=== PATIENT | female | born 1980 | race Caucasian/White ===

== ENCOUNTER 2018-10-11 06:12 | Inpatient (IN) | payer OTHER ==
--- NOTE | 2018-10-08 21:49 | PREOPHP ---
DATE OF ADMISSION: 10/11/2018 The patient is coming on 10/11 for a surgical procedure. HISTORY OF PRESENT ILLNESS: This is a 37-year-old female, 1, para 0, abortions 1. This brian ent was referred to me due to a large uterine fibroid that was giving her very heavy periods with marifer ts and anemia and pain unrelieved by NSAIDs and pain also for 3 days, heavy periods, regular periods, dyspareunia, dysmenorrhea for the last 3 or 4 years that has been worsening for the last 2 years. S he had a recent treatment for yeast infection. She has been bloated. She had pain in urination and she loses urine when she coughs or laugh due to the pressure of the uterus against the bladder. She wears a pad on a daily basis due to urinary accidents. She had a blood transfusion due to a hemoglob in of 5 last year and at this time she was examined and found that the uterus was 2 fingerbreadths be low her navel. The patient was advised for a myomectomy, possible UMESH as we never can say that we ar e not going to have accidents or excessive bleeding during the myomectomy and may need to have a hyst erectomy. She had agreed to go ahead with a myomectomy, possible UMESH. Her past history otherwise is negative for surgery. SHE HAS NO ALLERGIES. She is on iron. Family history for hypertension. The patient was treated with Lupron injections to try to decrease the size of the uterus and also decrea se the blood flow to the uterus by being in artificial menopause. REVIEW OF SYSTEMS: Negative for cardiovascular disease, negative for lung disease. She does not dri nk, only socially. She has a history of constipation, bloatedness, and she has no history of diabete s, any endocrine disease. No neurological or orthopedic disease. No hematological disease except fo r anemia due to her fibroids. MEDICATIONS: SHE IS NOT ALLERGIC TO ANY MEDICATIONS. SOCIAL HISTORY: She does not drink or smoke. FAMILY HISTORY: Hypertension. PHYSICAL EXAMINATION: VITAL SIGNS: Stable. She is 135 pounds, and she is 5'2". The blood pressure is 110/60, pulse is 80 , respirations 16. HEAD AND NECK: Normal. CHEST: Clear. HEART: Normal sinus rhythm. LUNGS: Clear. ABDOMEN: Soft, nontender, no masses. PELVIC: uterus that is about 14 weeks size right now after the Lupron treatment. The patient' s skin is better with less anemia from the Lupron treatment. The cervix is closed and uterus was irineo y large and adnexa are negative. EXTREMITIES: Normal with normal pulses and no edema. DIAGNOSES: 1. Large giant fibroid uterus. 2. Menometrorrhagia. 3. Pelvic pain, intractable. 4. Anemia. PLAN: She is undergoing multiple myomectomy, possible UMESH. She has been advised of the possible ris ks and possible complications of the procedure with her alternatives and options. Written informatio n was provided. She had no more questions and agreed to go ahead with the procedure with full unders tanding and no more questions. Dictated By: QI PETERSON/NTS Conf#: [id number] DID#: [id number]
[2018-10-11] VITALS (27 sets, daily range): BP systolic 95–143; BP diastolic 52–84; PULSE 54–81; RESP 14–24; Ht 157.5 cm; Wt 59.1 kg
[~2018-10-11] VITALS: Ht 157.5 cm; Wt 59.1 kg
[2018-10-11] MEDS ORDERED: PROPOFOL 100 ML ONE (07:08)
[2018-10-11] MEDS ORDERED: LIDOCAINE 100 MG SYRINGE ONE (07:08)
[2018-10-11] MEDS ORDERED: MIDAZOLAM 1 MG/ML 2 ML INJ ONE (07:08)
[2018-10-11] MEDS ORDERED: ROCURONIUM 50 MG INJ ONE (07:08)
[2018-10-11] MEDS ORDERED: ONDANSETRON 4 MG INJ ONE (07:08)
[2018-10-11] MEDS ORDERED: FENTAnyl 50 MCG/ML VIAL ONE (07:08)
[2018-10-11] MEDS ORDERED: DEXAMETHASONE 4 MG/ML 5 ML INJ ONE (07:08)
[2018-10-11] MEDS ORDERED: CEFAZOLIN 1 GM INJ ONE (07:08)
[2018-10-11] MEDS ORDERED: SUGAMMADEX SODIUM 200 MG/2 ML VIAL IV ONE (07:09)
--- NOTE | 2018-10-11 07:18 | PREAC ---
Date/Time of Note Date/Time of Note DATE: 10/11/18 TIME: 07:18 Anesthesia Eval and Record Evaluation Time Pre-Procedure Interview DATE: 10/11/18 TIME: 07:18 Age 37 Sex female NPO: 8 hrs Preoperative diagnosis large giant fibroid uterus Planned procedure MYOMECTOMY, POSSIBLE UMESH Past Medical History Past Medical History: None Surgery & Anesthesia Issues No known issue Meds Anticoagulation: No Beta Sybil within 24 hr: No Reason Beta Sybil not given: Pt. not on B-Sybil No Active Prescriptions or Reported Meds Meds reviewed: Yes Allergies Coded Allergies: No Known Allergy (Unverified , 10/11/18) Allergies Reviewed: Yes Labs/Studies Labs Reviewed: Reviewed by anesthesiologist Blood Bank Test 10/11/18 06:46 Blood Product Summary Counts test: Negative Studies: ECG (SR) Pre-procedure Exam Last vitals Vital Signs Date Temp Pulse Resp B/P (MAP) Pulse Ox O2 O2 Flow FiO2 Time Delivery Rate 10/11/18 98.5 74 18 109/79 100 Room Air 06:57 (89) Airway: Adequate mouth opening Mallampati: Mallampati I Teeth: Normal Lung: Normal Heart: Normal ASA Physical Status ASA physical status: 1 Emergency: None Planned Anesthetic General/MAC: ETT Pre-operative Attestations Prior to commencing anesthesia and surgery, the patient was re-evaluated, there was verification of: *The patient's identity *The results of appropriate recent lab work and preoperative vital signs *The above evaluation not changing prior to induction *Anesthetic plan, risk benefits, alternative and complications discussed with patient/family; questions answered; patient/family understands, accepts and wishes to proceed. ALLIE DOBBINS Oct 11, 2018 07:18
--- NOTE | 2018-10-11 07:24 | HPN ---
Date/Time of Note Date/Time of Note DATE: 10/11/18 TIME: 07:24 Interval H&P Admission Note Pt. seen H&P reviewed: No system changes QI AU MD Oct 11, 2018 07:24
[2018-10-11] MEDS ORDERED: FENTAnyl 50 MCG/ML VIAL IV PRN ×2 (07:30)
[2018-10-11] MEDS ORDERED: METOCLOPRAMIDE 10 MG INJ IV PRN (07:30)
[2018-10-11] MEDS ORDERED: ONDANSETRON 4 MG INJ IV PRN (07:30)
[2018-10-11] MEDS ORDERED: HYDROmorphONE 1 MG/5 ML IV SYRINGE IV PRN (07:30)
[2018-10-11] MEDS ORDERED: MEPERIDINE 25 MG INJ IV PRN (07:30)
[2018-10-11] MEDS ORDERED: LABETALOL HCL 20MG INJ IV PRN (07:30)
[2018-10-11] MEDS ORDERED: hydrALAzine 20 MG INJ IV PRN (07:30)
[2018-10-11] MEDS ORDERED: HYDROmorphONE 2 MG/ML SYG ONE (08:08)
[2018-10-11] MEDS ORDERED: VASOPRESSIN 20 UNITS INJ ONE (08:14)
--- NOTE | 2018-10-11 09:51 | SIPON ---
Date/Time of Note Date/Time of Note DATE: 10/11/18 TIME: 09:50 Operative Report Preoperative Diagnosis Intractable pelvic pain and bleeding Large multiple fibroid uterus Anemia Postoperative Diagnosis Same Operation/Procedure Performed Multiple myomectomy Surgeon see signature line assistant professor of philosophy vocational technical education teacher Anesthesia: general Estimated blood loss: 50 - 100 ml's Transfusion Required none Specimen Multiple myomas Grafts/Implants none Complications none QI AU MD Oct 11, 2018 09:51
--- NOTE | 2018-10-11 09:51 | PAC ---
Date/Time of Note Date/Time of Note DATE: 10/11/18 TIME: 09:50 Post-Anesthesia Notes Post-Anesthesia Note Last documented vital signs Vital Signs Date Temp Pulse Resp B/P (MAP) Pulse Ox O2 O2 Flow FiO2 Time Delivery Rate 10/11/18 98.5 74 18 109/79 100 Room Air 06:57 (89) Activity: WNL Respiratory function: WNL Cardiovascular function: WNL Mental status: Baseline Pain reasonably controlled: Yes Hydration appropriate: Yes Nausea/Vomiting absent: Yes ALLIE DOBBINS Oct 11, 2018 09:51
[2018-10-11] MEDS ORDERED: HYDROCODONE/APAP (5/325) TAB PO PRN (10:00)
[2018-10-11] MEDS ORDERED: ONDANSETRON INJ 6 MG in DEXTROSE 5% 50 ML IVPB PRN (10:00)
[2018-10-11] MEDS ORDERED: ZOLPIDEM 5 MG TAB PO PRN (10:00)
[2018-10-11] MEDS ORDERED: DIPHENHYDRAMINE 50 MG CAP PO PRN (10:00)
[2018-10-11] MEDS: HYDROmorphONE 1 MG/5 ML IV SYRINGE IV PRN ×2 (10:20→10:39)
[2018-10-11] MEDS: KETOROLAC 30 MG INJ IV SCH ×3 (10:25→21:44)
[2018-10-11] MEDS: LACTATED RINGER'S 1,000 ML IV SCH ×2 (11:04→21:44)
--- NOTE | 2018-10-11 12:10 | OPR ---
DATE OF OPERATION: 10/11/2018 PROCEDURE: Multiple myomectomy. PREOPERATIVE DIAGNOSES: 1. Intractable pelvic pain and bleeding. 2. Large multiple fibroid uterus and anemia. POSTOPERATIVE DIAGNOSES: 1. Intractable pelvic pain and bleeding. 2. Large multiple fibroid uterus and anemia. SURGEON: Qi Milton MD MITER GRINDER OPERATOR: Lewis alcazar. ANESTHESIOLOGIST: Mr. Corky Stevenson. COMPLICATIONS: No complication. DESCRIPTION OF PROCEDURE: The patient was given general anesthesia, placed in the supine position. The abdomen was prepped and draped, and a Elder catheter had been placed in the bladder. A transvers e incision going 2 cm above the pubic bone was made of about 15 cm in diameter. The abdomen was open ed in layers without difficulties. Abdominal cavity was reached. The uterus was brought out throug h the incision and a large fundal fibroid was found on the anterior face of the uterus and also anoth er fibroid was found in the posterior lower near the cervix, left-sided to the patient of about 5 cm. There was another one on the left side about 3 cm and there was another one in the front near the c ervix, again left-sided about 4 to 5 cm. The large fibroid was about 20 cm. Pitressin 20 units mixe d in 20 mL of saline was injected around the uterus for the incisions. A vertical incision was made on the big one anterior to the uterus and a midline incision was made and it had to be a large incisi on due to the size of the fibroid that was multilocular and slowly it was removed intact. It was a r eal huge 20 cm fibroid. The left-sided and anterior and fundus on the left were also excised as well as the posterior near the cervix, left-sided as well. So all 4 areas were injected with the Pitress in diluted and vertical incisions were done in all of them and the closure was done with 0 Vicryl, 2- 0 Vicryl and pop-offs. Three layers were done and the major one and the large one anteriorly. The f ibroid was reached the cavity of the uterus, so first we closed the first 2 layers with chromic pop-o ffs and then the upper 2 layers were closed with 2-0 Vicryl and interrupted and continuous sutures. The hemostasis was good. The cavity was visualized under water in all areas after the closure were i ntact with no bleeding. The cavity was rinsed off. Both ovaries were normal. Both tubes were dolores l. The incisions were not near the tube. The third Interceed was used in all the areas for Intercee d were used in all the areas that were opened to prevent adhesions and after the cavity had been ghassan gerardo out, the cavity was now closed with a 2-0 Vicryl for peritoneum, #0 PDS looped suture for the fas last, 2-0 Vicryl for the subcutaneous tissue, 3-0 Monocryl subcuticular to the skin and Dermabond and Steri-Strips. The patient tolerated the procedure well and left the OR awake and stable. Sponge cou nts and instrument counts were correct. Intravenous antibiotics were given for prophylaxis. Blood l oss was less than 50 mL and the urine was clear at the end of the procedure. Dictated By: QI PETERSON/DAYRON Conf#: [id number] DID#: [id number]
[2018-10-11] MEDS: CEFAZOLIN 1 GM/50 ML (PMX) 50 ML IVPB SCH ×2 (13:52→21:45)
[2018-10-11] MEDS: METOCLOPRAMIDE 10 MG TAB PO SCH ×2 (13:52→17:42)
[2018-10-12] MEDS: METOCLOPRAMIDE 10 MG TAB PO SCH ×4 (00:29→17:53)
[2018-10-12] MEDS: LACTATED RINGER'S 1,000 ML IV SCH ×3 (01:53→12:51)
[2018-10-12 03:44] VITALS: BP 123/64; PULSE 64; RESP 18
[2018-10-12] MEDS: KETOROLAC 30 MG INJ IV SCH ×4 (04:11→22:30)
[2018-10-12] MEDS: CEFAZOLIN 1 GM/50 ML (PMX) 50 ML IVPB SCH ×3 (06:20→21:11)
[2018-10-12 07:43] VITALS: BP 107/61; PULSE 71; RESP 18
--- NOTE | 2018-10-12 09:34 | PN ---
Date/Time of Note Date/Time of Note DATE: 10/12/18 TIME: 09:33 Assessment/Plan Lines/Catheters IV Catheter Type (from Nrs): Peripheral IV Elder in Place (from Nrs): Yes Subjective 24 Hr Interval Summary Day 1 post exploratory laparotomy and multiple myomectomy. Patient was explained about the surgical procedure. She is doing well she is not complaining of any pain nor vomiting Her abdomen is flat incision dry with some red spots for which IV antibiotics will be continued today. Encouraged ambulation. Full liquid diet for today if tolerated Constitutional: no complaints Feeding: advancing diet Pain Control: mild Detailed Summary Eyes: no complaints ENT: no complaints Respiratory: no complaints Cardiovascular: no complaints Gastrointestinal: no complaints Genitourinary: no complaints Musculoskeletal: no complaints Skin: no complaints Neurologic: no complaints Endocrine: no complaints Lymphatic: no complaints Psychological: no complaints, nl mood/affect Immunologic: no complaints Exam/Review of Systems Vital Signs Vitals Vital Signs Date Temp Pulse Resp B/P (MAP) Pulse Ox O2 O2 Flow FiO2 Time Delivery Rate 10/12/18 98.3 71 18 107/61 96 Room Air 07:43 (76) 10/11/18 8.0 10:05 Intake and Output 10/11/18 10/11/18 10/12/18 1414:59 22:59 06:59 IntakeIntake Total 1750 ml 1530 ml 1450 ml OutputOutput Total 890 ml 600 ml 2200 ml BalanceBalance 860 ml 930 ml -750 ml Exam Constitutional: alert, oriented, well developed Psych: no complaints, nl mood/affect Head: normocephalic, atraumatic Eyes: nl conjunctiva, EOMI, nl lids, nl sclera ENMT: nl external ears & nose, nl lips & teeth, nl nasal mucosa & septum, mucosa pink and moist Neck: supple, non-tender Respiratory: clear to auscultation, normal air movement Cardiovascular: regular rate and rhythm, nl pulses Gastrointestinal: soft, nl liver, spleen, non-tender Musculoskeletal: nl extremities to inspection, nl gait and stance Extremities: normal pulses Neurological: BINDING MACHINE OPERATOR II-XII intact, nl mental status, nl speech, nl strength Skin: nl turgor, rash or lesions Lymph: nl lymph nodes Results Result Diagram: 10/12/1844110/12/18440 QI AU MD October 12, 2018 09:34
[2018-10-12] MEDS: HYDROCODONE/APAP (5/325) TAB PO PRN ×2 (13:18→19:56)
[2018-10-12 14:35] VITALS: BP 98/52; PULSE 70; RESP 18
[2018-10-12 19:42] VITALS: BP 106/61; PULSE 67; RESP 18
[2018-10-13] MEDS: METOCLOPRAMIDE 10 MG TAB PO SCH ×3 (00:19→12:00)
[2018-10-13 01:40] VITALS: BP 99/56; PULSE 65; RESP 18
[2018-10-13] MEDS: KETOROLAC 30 MG INJ IV SCH ×2 (04:21→09:41)
[2018-10-13] MEDS: CEFAZOLIN 1 GM/50 ML (PMX) 50 ML IVPB SCH ×2 (06:09→13:43)
[2018-10-13 08:13] VITALS: BP 102/62; PULSE 61; RESP 18
--- NOTE | 2018-10-13 11:38 | DS ---
Date/Time of Note Date/Time of Note DATE: 10/13/18 TIME: 11:35 Discharge Summary Admission/Discharge Info Admit Date/Time Oct 11, 2018 at 06:12 Discharge Date/Time October 13, 2018 Discharge Diagnosis Multiple myomectomy from giant multiple fibroids Patient Condition: Good Procedures Multiple myomectomy Hx of Present Illness 37 years old female referred to me for myomectomy due to severe menometrorrhagia pelvic pain and back pain intractable with severe anemia as well that have been treated with IV blood transfusion Hospital Course Patient underwent a multiple myomectomy. She did very well after surgery she has been afebrile. Has been ambulatory tolerating diet Incision healing very well Today she had a bowel movement Laboratories near normal Home with instructions of what to do or not to do. Instructions were given of how to reach me at any time and see me in 1 week Further instructions were giving of activity diet etc. patient is stable to go home Home Meds No Active Prescriptions or Reported Meds Primary Care Provider Not On Staff Doctor Time spent on discharge: < 30 minutes QI AU MD October 13, 2018 11:38
--- NOTE | 2018-10-13 11:39 | PD.PPDC ---
FLIGHT AGENT Discharge Instruction Condition [id number] Patient Condition: Tkefl6s Good Diet [id number] Diet: Wbiyp2l Resume Regular Diet Activity/Restrictions [id number] Activity: Kfuck7l Normal Activity May Shower [id number] Restrictions: [id number] No Exercising No Lifting No Driving No Sexual Activity Nothing in the Vagina No [place] No Tampons, douche Wound/Drain Care Instructions [id number] Wound/Drain Care Instructions: [id number] Wash with soap and water Keep clean and dry Follow-up Follow-up with Physician: 1, Week/Weeks Return to clinic for [id number] SENIOR HR MANAGER Instructions: [id number] Fever greater than 101 Chills Worsening abdominal pain Excessive Vaginal Bleeding More than 2 pads per hour Unable to tolerate diet [id number] Surgical Instructions: [id number] Incisional Drainage Incisional Redness QI AU MD October 13, 2018 11:39
[2018-10-13] MEDS: HYDROCODONE/APAP (5/325) TAB PO PRN (15:06)
== END 2018-10-13 15:50 | disposition home or self-care (01) | DRG 743 ==
LOC: REC 06:12 → MS1 11:15
PROVIDERS: ADMIT Obstetrics & Gynecology; ATTEND Obstetrics & Gynecology
PROC: 0UB90ZZ Excision of Uterus, Open Approach (ICD-10-PCS; principal; 2018-10-11 07:30)
DX: D25.9 Leiomyoma of uterus, unspecified (principal); N92.1 Excessive and frequent menstruation with irregular cycle; D64.9 Anemia, unspecified
CPT/HCPCS: 80051; 82565; 84520; 84703; 85025; 86850; 86900; 86901; 86920; 87086; 88305; J0690; J1100; J1170; J1885; J2001; J2250; J2405; J3010; J7120